=== PATIENT | male | born 1960 | race Caucasian/White ===

== ENCOUNTER 2017-08-21 02:55 | Inpatient (IN) | payer MEDICAID ==
[2017-08-21] VITALS (20 sets, daily range): BP systolic 104–140; BP diastolic 60–90; BMI 48.3
[~2017-08-21] VITALS: Ht 177.8 cm; Wt 149.7 kg
--- NOTE | ~2017-08-21 | EC ---
PATIENT:HUGO PRINCE DATE OF SERVICE: 08/21/17 SEX: M MEDICAL RECORD: [id number] DATE OF : 64 LOCATION:[facility] D230 AGE OF PATIENT: 56 ADMISSION DATE: 08/21/17 REFERRING PHYSICIAN: INTERPRETING PHYSICIAN: HERBER ROGEL MD ECHOCARDIOGRAM REPORT ECHO CHARGES 4 ECHO COMPLETE Date: 08/21 CLINICAL DIAGNOSIS: CHF ECHOCARDIOGRAPHIC MEASUREMENTS (adult normal given) AC root (d.<3.7cm) 3.3 cm LV Septum d (<1.2 cm> 1.1 cm Valve Excursion 1.9 cm LV Septum (systole) 2.1 cm Left Atria (s.<4.0cm> 3.3 cm LVPW d(<1.2cm) 1.1 cm RV (d.<2.3cm) 3.8 cm LVPW (sytole) 2.0 cm LV diastole(<5.6CM) 8.0 cm MV E-F(>70mm/sec) cm LV systole 5.4 cm LVOT Diameter 1.9 cm MV exc.(>10mm) cm Est.ejection fraction (50-75%) % DOPPLER: LVIT cm/sec A cm/sec E 135 cm/sec LA cm/sec RVSP 43.2 mmHg LVOT 103 cm/sec AOP1/2T m/s Asc. Ao 200 cm/sec RVOT 90.0 cm/sec RA cm/sec PA 134 cm/sec AV Gradient Peak 16.0 mmHg AV Mean 8.5 mmHg AV Area 1.3 cm MV Gradient Peak 11.1 mmHg MV Mean 3.6 mmHg MV Area cm COMMENTS: Cartridge Assembling Machine Adjuster: 1 MARYANNE MONTOYAOE Office Technologist: 1 Dr. Rogel TAPE# PACS Pericardial Effusion N DATE OF SERVICE: PROCEDURE: Echocardiogram. FINDINGS: 1. Left ventricular chamber size is dilated. Left ventricular systolic function is moderately reduced, overall ejection fraction 30% to 35%. 2. Left atrium is within normal limits at 3.3 cm. Right atrium and right ventricular chamber sizes are moderately dilated. 3. Valvular structures have normal structure and motion. ECHOCARDIOGRAM REPORT [id number] HUGO PRINCE 4. Doppler interrogation reveals mild mitral regurgitation, moderate tricuspid regurgitation, no other valvular insufficiency or stenosis. Pulmonary systolic pressure is estimated 43 mmHg. 5. No evidence of pericardial effusion or left ventricular thrombus. TRANSINT:[id number] Voice Confirmation ID: [id number] DOCUMENT ID: [id number] HERBER ROGEL MD at 1057 CC: [id number] DICTATION DATE: 08/22/17 1252 CAMP ASSISTANT: 08/22/17 1306 ADM IN [facility] [address] [place] [address]
[~2017-08-21 02:55] MED LIST: ASPIRIN325 MG PO; ASPIRIN81 MG PO; COREG12.5 MG PO; ELIQUIS5 MG PO; GLUCOPHAGE500 MG PO; K-DUR20 MEQ PO; LASIX20 MG PO; LIORESAL 10 MG10 MG PO; LISINOPRIL5 MG PO; NICODERM C1 PATCH .2 TRANSDERM; NITROSTAT0.4 MG SL; PLAVIX75 MG PO; PREDNISONE20 MG PO; TOPROL XL50 MG PO; VENTOLIN HFA18 GM INH; WELLBUTRIN SR150 MG PO
[2017-08-21 03:46] LABS: BASOPHILS 0.4 % (0-2); EOSINOPHILS 0.3 % (0-7); IMMATURE GRANULOCYTES 0.4 % (0-5); LYMPHOCYTES 19.6 % (15-50); MCH 20.4 pg (26.0-34.0); MCHC 26.7 g/dL (31.0-37.0); MCV 76.6 fL (80.0-100.0); MEAN PLATELET VOLUME 10.1 fL (7.4-10.4); NEUTROPHILS 72.3 % (40-80); RBC 2.35 10x6/uL (4.20-6.10); RDW 19.3 % (11.5-14.5); WBC 7.5 10x3/uL (4.8-10.8)
[2017-08-21 03:50] LABS: HEMOGLOBIN 4.8 g/dL (13.5-17.5); PLATELET COUNT 125 10x3/uL (130-400)
[2017-08-21 04:05] LABS: ALBUMIN 2.4 g/dL (3.4-5.0); ALKALINE PHOSPHATASE 82 U/L (46-116); ALT (SGPT) 10 U/L (10-68); BILIRUBIN - TOTAL 1.56 mg/dL (0.2-1.3); CALC OSMOLALITY 273 mosm/kg (275-300); CALCIUM 7.6 mg/dL (8.5-10.1); CARBON DIOXIDE 20.9 mmol/L (21.0-32.0); CHLORIDE - SERUM 103 mmol/L (98-107); CREATININE - SERUM 1.8 mg/dL (0.6-1.3); POTASSIUM - SERUM 3.9 mmol/L (3.5-5.1); PROTEIN - SERUM 8.3 g/dL (6.4-8.2); SODIUM 135 mmol/L (136-145); UREA NITROGEN 16 mg/dL (7-18); eGFR NON AFRICAN AMERICAN 42 mL/min (90-120)
[2017-08-21 04:06] LABS: GLUCOSE 158 mg/dL (74-106)
[2017-08-21 04:29] LABS: CKMB 0.7 U/L (0.0-3.6); CREATINE KINASE 63 UL (21-232); PRO BNP 4683 pg/mL (0-125); TROPONIN-I 0.031 ng/mL (0.000-0.060)
[2017-08-21 07:10] LABS: CKMB 1.1 U/L (0.0-3.6); CREATINE KINASE 79 UL (21-232); TROPONIN-I 0.027 ng/mL (0.000-0.060)
[2017-08-21 12:03] LABS: HEMOGLOBIN 5.8 g/dL (13.5-17.5)
[2017-08-21 12:12] LABS: INR 1.64 (0.85-1.17); PROTIME 18.9 SECONDS (11.6-15.0)
[2017-08-21 12:13] LABS: APTT 28.8 SECONDS (22.8-39.4)
[2017-08-21 12:24] LABS: CKMB 0.8 U/L (0.0-3.6); CREATINE KINASE 68 UL (21-232); TROPONIN-I 0.029 ng/mL (0.000-0.060)
[2017-08-21 17:56] LABS: HEMOGLOBIN 6.6 g/dL (13.5-17.5)
[2017-08-21 18:52] LABS: CKMB 0.7 U/L (0.0-3.6); CREATINE KINASE 83 UL (21-232); TROPONIN-I 0.025 ng/mL (0.000-0.060)
[2017-08-21 22:09] LABS: HEMATOCRIT 23.5 % (42.0-54.0)
[2017-08-22] VITALS (19 sets, daily range): BP systolic 95–157; BP diastolic 55–91; BMI 49.3
[2017-08-22 04:32] LABS: BASOPHILS 0.3 % (0-2); EOSINOPHILS 0.3 % (0-7); HEMATOCRIT 25.6 % (42.0-54.0); HEMOGLOBIN 7.6 g/dL (13.5-17.5); IMMATURE GRANULOCYTES 0.4 % (0-5); LYMPHOCYTES 21.4 % (15-50); MCHC 29.7 g/dL (31.0-37.0); MEAN PLATELET VOLUME 10.4 fL (7.4-10.4); MONOCYTES 6.8 % (2-11); NEUTROPHILS 70.8 % (40-80); PLATELET COUNT 119 10x3/uL (130-400); RDW 18.9 % (11.5-14.5)
[2017-08-22 04:40] LABS: MCV 80.8 fL (80.0-100.0); RBC 3.17 10x6/uL (4.20-6.10)
[2017-08-22 04:44] LABS: ANION GAP 14.1 mmol/L (8-16); CALCIUM 7.6 mg/dL (8.5-10.1); CARBON DIOXIDE 22.5 mmol/L (21.0-32.0); CREATININE - SERUM 1.7 mg/dL (0.6-1.3); POTASSIUM - SERUM 3.6 mmol/L (3.5-5.1)
[2017-08-22 04:49] LABS: INR 1.35 (0.85-1.17); PROTIME 16.2 SECONDS (11.6-15.0)
[2017-08-22 10:09] LABS: APPEARANCE CLEAR (CLEAR); BILIRUBIN NEGATIVE (NEGATIVE); COLOR YELLOW (YELLOW); CREATININE - URINE 17.6 mg/dL (30-125); GLUCOSE NEGATIVE (NEGATIVE); KETONE NEGATIVE (NEGATIVE); NITRITE NEGATIVE (NEGATIVE); PROTEIN NEGATIVE (NEGATIVE); PROTEIN - URINE 12.9 mg/dL (0.0-11.9); UROBILINOGEN NORMAL (NORMAL)
[2017-08-22 12:58] LABS: HEMATOCRIT 26.6 % (42.0-54.0); HEMOGLOBIN 8.1 g/dL (13.5-17.5)
[2017-08-23 03:00] VITALS: BP 125/56
[2017-08-23 03:44] LABS: BASOPHILS 0.3 % (0-2); EOSINOPHILS 0.8 % (0-7); HEMATOCRIT 27.7 % (42.0-54.0); HEMOGLOBIN 8.3 g/dL (13.5-17.5); IMMATURE GRANULOCYTES 0.7 % (0-5); LYMPHOCYTES 22.4 % (15-50); MCH 24.3 pg (26.0-34.0); MCV 81.2 fL (80.0-100.0); MEAN PLATELET VOLUME 10.2 fL (7.4-10.4); MONOCYTES 7.7 % (2-11); NEUTROPHILS 68.1 % (40-80); PLATELET COUNT 111 10x3/uL (130-400); RBC 3.41 10x6/uL (4.20-6.10); RDW 19.4 % (11.5-14.5); WBC 7.2 10x3/uL (4.8-10.8)
[2017-08-23 04:15] LABS: CALCIUM 7.8 mg/dL (8.5-10.1); CARBON DIOXIDE 24.2 mmol/L (21.0-32.0); CREATININE - SERUM 1.8 mg/dL (0.6-1.3); POTASSIUM - SERUM 3.2 mmol/L (3.5-5.1)
[2017-08-23 07:00] VITALS: BP 125/71
[2017-08-23 11:00] VITALS: BP 107/77
[2017-08-23 15:00] VITALS: BP 105/63
[2017-08-23 22:20] VITALS: BP 101/61
[2017-08-24 01:36] VITALS: BP 122/73
[2017-08-24 05:54] VITALS: BP 117/65
[2017-08-24 06:39] LABS: BASOPHILS 0.3 % (0-2); EOSINOPHILS 0.8 % (0-7); HEMATOCRIT 27.3 % (42.0-54.0); HEMOGLOBIN 8.1 g/dL (13.5-17.5); IMMATURE GRANULOCYTES 0.6 % (0-5); LYMPHOCYTES 23.8 % (15-50); MCH 24.5 pg (26.0-34.0); MCHC 29.7 g/dL (31.0-37.0); MCV 82.7 fL (80.0-100.0); MEAN PLATELET VOLUME 10.7 fL (7.4-10.4); MONOCYTES 8.9 % (2-11); NEUTROPHILS 65.6 % (40-80); PLATELET COUNT 111 10x3/uL (130-400); RDW 20.8 % (11.5-14.5); WBC 6.3 10x3/uL (4.8-10.8)
[2017-08-24 07:17] LABS: ANION GAP 12.8 mmol/L (8-16); CALCIUM 7.6 mg/dL (8.5-10.1); CARBON DIOXIDE 24.7 mmol/L (21.0-32.0); CREATININE - SERUM 1.7 mg/dL (0.6-1.3); POTASSIUM - SERUM 3.5 mmol/L (3.5-5.1)
[2017-08-24 08:41] VITALS: BP 125/68
[2017-08-24 12:41] VITALS: BP 110/66
[2017-08-24 16:47] VITALS: BP 108/67
[2017-08-24 21:53] VITALS: BP 106/69
[2017-08-25 02:51] VITALS: BP 105/63
[2017-08-25 04:58] LABS: BASOPHILS 0.4 % (0-2); EOSINOPHILS 0.9 % (0-7); HEMATOCRIT 25.8 % (42.0-54.0); HEMOGLOBIN 7.6 g/dL (13.5-17.5); IMMATURE GRANULOCYTES 0.4 % (0-5); MCH 24.6 pg (26.0-34.0); MCHC 29.5 g/dL (31.0-37.0); MCV 83.5 fL (80.0-100.0); MEAN PLATELET VOLUME 10.1 fL (7.4-10.4); MONOCYTES 7.8 % (2-11); NEUTROPHILS 64.5 % (40-80); PLATELET COUNT 94 10x3/uL (130-400); RBC 3.09 10x6/uL (4.20-6.10); RDW 21.7 % (11.5-14.5); WBC 5.5 10x3/uL (4.8-10.8)
[2017-08-25 05:17] LABS: ANION GAP 10.9 mmol/L (8-16); CALCIUM 7.3 mg/dL (8.5-10.1); CARBON DIOXIDE 28.2 mmol/L (21.0-32.0); CREATININE - SERUM 1.6 mg/dL (0.6-1.3); POTASSIUM - SERUM 3.1 mmol/L (3.5-5.1)
[2017-08-25 08:24] VITALS: BP 115/68
[2017-08-25 12:06] VITALS: BP 97/56
[2017-08-25 16:10] VITALS: BP 95/50
[2017-08-25 22:12] VITALS: BP 114/56
[2017-08-26] VITALS (14 sets, daily range): BP systolic 92–121; BP diastolic 52–69
[2017-08-26 05:22] LABS: BASOPHILS 0.5 % (0-2); EOSINOPHILS 1.2 % (0-7); HEMATOCRIT 25.5 % (42.0-54.0); IMMATURE GRANULOCYTES 0.2 % (0-5); LYMPHOCYTES 24.2 % (15-50); MCH 24.6 pg (26.0-34.0); MCV 84.7 fL (80.0-100.0); MEAN PLATELET VOLUME 10.4 fL (7.4-10.4); MONOCYTES 7.3 % (2-11); NEUTROPHILS 66.6 % (40-80); PLATELET COUNT 89 10x3/uL (130-400); RBC 3.01 10x6/uL (4.20-6.10); RDW 22.7 % (11.5-14.5); WBC 5.8 10x3/uL (4.8-10.8)
[2017-08-26 05:33] LABS: HEMOGLOBIN 7.4 g/dL (13.5-17.5)
[2017-08-26 05:52] LABS: ANION GAP 12.1 mmol/L (8-16); CALCIUM 7.4 mg/dL (8.5-10.1); CARBON DIOXIDE 27.5 mmol/L (21.0-32.0); CREATININE - SERUM 1.5 mg/dL (0.6-1.3); POTASSIUM - SERUM 3.6 mmol/L (3.5-5.1); T4 THYROXIN - FREE 0.99 ng/dL (0.76-1.46)
[2017-08-27 00:41] VITALS: BP 108/58
[2017-08-27 04:40] LABS: BASOPHILS 0.5 % (0-2); EOSINOPHILS 1.6 % (0-7); HEMATOCRIT 27.5 % (42.0-54.0); HEMOGLOBIN 8.2 g/dL (13.5-17.5); IMMATURE GRANULOCYTES 0.4 % (0-5); MCH 25.2 pg (26.0-34.0); MCHC 29.8 g/dL (31.0-37.0); MCV 84.4 fL (80.0-100.0); MEAN PLATELET VOLUME 10.8 fL (7.4-10.4); MONOCYTES 7.4 % (2-11); NEUTROPHILS 67.1 % (40-80); PLATELET COUNT 89 10x3/uL (130-400); RBC 3.26 10x6/uL (4.20-6.10); RDW 22.5 % (11.5-14.5); WBC 5.6 10x3/uL (4.8-10.8)
[2017-08-27 04:46] LABS: INR 1.27 (0.85-1.17); PROTIME 15.5 SECONDS (11.6-15.0)
[2017-08-27 04:47] LABS: APTT 30.2 SECONDS (22.8-39.4)
[2017-08-27 05:22] LABS: ALBUMIN 2.4 g/dL (3.4-5.0); ANION GAP 10.1 mmol/L (8-16); BILIRUBIN - TOTAL 1.19 mg/dL (0.2-1.3); CALCIUM 7.3 mg/dL (8.5-10.1); CARBON DIOXIDE 30.1 mmol/L (21.0-32.0); CREATININE - SERUM 1.6 mg/dL (0.6-1.3); POTASSIUM - SERUM 3.2 mmol/L (3.5-5.1); PROTEIN - SERUM 8.3 g/dL (6.4-8.2)
[2017-08-27 10:27] VITALS: BP 94/57
[2017-08-27 18:18] VITALS: BP 94/54
[2017-08-27 20:44] VITALS: BP 101/73
[2017-08-28 01:24] VITALS: BP 112/74
[2017-08-28 06:52] LABS: BASOPHILS 0.5 % (0-2); EOSINOPHILS 2.2 % (0-7); HEMATOCRIT 30.7 % (42.0-54.0); IMMATURE GRANULOCYTES 0.3 % (0-5); LYMPHOCYTES 19.4 % (15-50); MCH 25.1 pg (26.0-34.0); MCHC 29.3 g/dL (31.0-37.0); MCV 85.5 fL (80.0-100.0); MEAN PLATELET VOLUME 10.9 fL (7.4-10.4); NEUTROPHILS 69.6 % (40-80); PLATELET COUNT 97 10x3/uL (130-400); RBC 3.59 10x6/uL (4.20-6.10); RDW 22.3 % (11.5-14.5)
[2017-08-28 07:25] LABS: PLATELET ESTIMATE DECREASED
[2017-08-28 07:34] LABS: ALBUMIN 2.5 g/dL (3.4-5.0); BILIRUBIN - TOTAL 1.1 mg/dL (0.2-1.3); CALCIUM 7.9 mg/dL (8.5-10.1); CARBON DIOXIDE 31.3 mmol/L (21.0-32.0); CREATININE - SERUM 1.6 mg/dL (0.6-1.3); PROTEIN - SERUM 8.4 g/dL (6.4-8.2)
[2017-08-28 07:35] LABS: ANION GAP 8.8 mmol/L (8-16); POTASSIUM - SERUM 3.1 mmol/L (3.5-5.1)
[2017-08-28 08:12] VITALS: BP 98/64
[2017-08-28 11:34] LABS: INR 1.28 (0.85-1.17); PROTIME 15.6 SECONDS (11.6-15.0)
[2017-08-28 16:08] VITALS: BP 108/62
[2017-08-28 20:21] VITALS: BP 104/60
[2017-08-29] VITALS (15 sets, daily range): BP systolic 94–137; BP diastolic 51–75
[2017-08-29 05:15] LABS: BASOPHILS 0.5 % (0-2); EOSINOPHILS 1.4 % (0-7); HEMATOCRIT 29.2 % (42.0-54.0); HEMOGLOBIN 8.6 g/dL (13.5-17.5); IMMATURE GRANULOCYTES 0.2 % (0-5); LYMPHOCYTES 21.6 % (15-50); MCH 25.2 pg (26.0-34.0); MCHC 29.5 g/dL (31.0-37.0); MCV 85.6 fL (80.0-100.0); MEAN PLATELET VOLUME 10.8 fL (7.4-10.4); MONOCYTES 6.2 % (2-11); NEUTROPHILS 70.1 % (40-80); PLATELET COUNT 100 10x3/uL (130-400); RBC 3.41 10x6/uL (4.20-6.10); RDW 22.4 % (11.5-14.5); WBC 6.3 10x3/uL (4.8-10.8)
[2017-08-29 05:40] LABS: ALBUMIN 2.4 g/dL (3.4-5.0); BILIRUBIN - TOTAL 1.03 mg/dL (0.2-1.3); CALCIUM 7.8 mg/dL (8.5-10.1); CARBON DIOXIDE 29.6 mmol/L (21.0-32.0); CREATININE - SERUM 1.6 mg/dL (0.6-1.3); PROTEIN - SERUM 8.1 g/dL (6.4-8.2)
[2017-08-29 05:41] LABS: POTASSIUM - SERUM 3.6 mmol/L (3.5-5.1)
[2017-08-30 00:56] VITALS: BP 112/68
[2017-08-30 04:44] VITALS: BP 103/63
[2017-08-30 05:32] LABS: BASOPHILS 0.3 % (0-2); EOSINOPHILS 1.4 % (0-7); HEMATOCRIT 30.6 % (42.0-54.0); HEMOGLOBIN 9.1 g/dL (13.5-17.5); IMMATURE GRANULOCYTES 0.3 % (0-5); LYMPHOCYTES 21.2 % (15-50); MCH 25.7 pg (26.0-34.0); MCHC 29.7 g/dL (31.0-37.0); MCV 86.4 fL (80.0-100.0); MEAN PLATELET VOLUME 11.3 fL (7.4-10.4); MONOCYTES 5.7 % (2-11); NEUTROPHILS 71.1 % (40-80); PLATELET COUNT 103 10x3/uL (130-400); RBC 3.54 10x6/uL (4.20-6.10); RDW 21.8 % (11.5-14.5); WBC 6.3 10x3/uL (4.8-10.8)
[2017-08-30 05:57] LABS: ALBUMIN 2.4 g/dL (3.4-5.0); ANION GAP 8.8 mmol/L (8-16); BILIRUBIN - DIRECT 0.33 mg/dL (0.00-0.30); BILIRUBIN - INDIRECT 0.67 mg/dL (0.00-1.00); CALCIUM 7.9 mg/dL (8.5-10.1); CARBON DIOXIDE 30.3 mmol/L (21.0-32.0); CREATININE - SERUM 1.7 mg/dL (0.6-1.3); POTASSIUM - SERUM 4.1 mmol/L (3.5-5.1); PROTEIN - SERUM 8.4 g/dL (6.4-8.2)
[2017-08-30 13:09] VITALS: BP 106/61
[2017-08-30 16:19] VITALS: BP 105/67
[2017-08-30 20:43] VITALS: BP 114/71
[2017-08-30 20:55] VITALS: Ht 177.8 cm; Wt 149.7 kg
[2017-08-31 01:20] VITALS: BP 95/66
[2017-08-31 05:52] VITALS: BP 100/69
[2017-08-31 07:14] LABS: BASOPHILS 0.6 % (0-2); EOSINOPHILS 1.3 % (0-7); HEMATOCRIT 31.6 % (42.0-54.0); HEMOGLOBIN 9.4 g/dL (13.5-17.5); IMMATURE GRANULOCYTES 0.2 % (0-5); LYMPHOCYTES 19.7 % (15-50); MCH 25.9 pg (26.0-34.0); MCHC 29.7 g/dL (31.0-37.0); MCV 87.1 fL (80.0-100.0); MONOCYTES 6.4 % (2-11); NEUTROPHILS 71.8 % (40-80); PLATELET COUNT 108 10x3/uL (130-400); RBC 3.63 10x6/uL (4.20-6.10); RDW 22.4 % (11.5-14.5); WBC 6.3 10x3/uL (4.8-10.8)
[2017-08-31 07:57] LABS: ALBUMIN 2.5 g/dL (3.4-5.0); BILIRUBIN - TOTAL 1.01 mg/dL (0.2-1.3); CALCIUM 7.9 mg/dL (8.5-10.1); CARBON DIOXIDE 28.5 mmol/L (21.0-32.0); CREATININE - SERUM 1.7 mg/dL (0.6-1.3); POTASSIUM - SERUM 4.5 mmol/L (3.5-5.1); PROTEIN - SERUM 8.7 g/dL (6.4-8.2)
[2017-08-31 09:09] VITALS: BP 107/67
[2017-08-31 12:30] VITALS: BP 108/68
[2017-08-31 15:58] VITALS: BP 105/66
[2017-08-31] MEDS ORDERED: MOTRIN600 MG PO (20:23)
[2017-09-01] VITALS: BP 113/65
[2017-09-01 04:05] VITALS: BP 104/67
[2017-09-01 06:11] LABS: BASOPHILS 0.4 % (0-2); EOSINOPHILS 1.4 % (0-7); HEMATOCRIT 29.8 % (42.0-54.0); HEMOGLOBIN 8.9 g/dL (13.5-17.5); IMMATURE GRANULOCYTES 0.2 % (0-5); LYMPHOCYTES 22.6 % (15-50); MCH 25.9 pg (26.0-34.0); MCHC 29.9 g/dL (31.0-37.0); MCV 86.6 fL (80.0-100.0); MEAN PLATELET VOLUME 11.1 fL (7.4-10.4); NEUTROPHILS 69.4 % (40-80); PLATELET COUNT 104 10x3/uL (130-400); RBC 3.44 10x6/uL (4.20-6.10); RDW 22.7 % (11.5-14.5); WBC 5.6 10x3/uL (4.8-10.8)
[2017-09-01 06:42] LABS: ALBUMIN 2.4 g/dL (3.4-5.0); BILIRUBIN - TOTAL 0.89 mg/dL (0.2-1.3); CALCIUM 7.9 mg/dL (8.5-10.1); CARBON DIOXIDE 27.9 mmol/L (21.0-32.0); POTASSIUM - SERUM 4.9 mmol/L (3.5-5.1); PROTEIN - SERUM 8.4 g/dL (6.4-8.2)
[2017-09-01 09:18] VITALS: BP 128/60
[2017-09-01 12:09] VITALS: BP 105/66
[2017-09-01 15:42] LABS: APPEARANCE CLOUDY (CLEAR); BILIRUBIN NEGATIVE (NEGATIVE); COLOR DK YELLOW (YELLOW); GLUCOSE NEGATIVE (NEGATIVE); KETONE NEGATIVE (NEGATIVE); NITRITE NEGATIVE (NEGATIVE); PH 5.5 (5.0-6.0); PROTEIN 2+ mg/dL (NEGATIVE); SPECIFIC GRAVITY 1.015 (1.005-1.020); UROBILINOGEN NORMAL (NORMAL)
[2017-09-01 15:49] LABS: BACTERIA MANY /hpf (NONE SEEN); EPITHELIAL CELLS 0-5 /hpf (0-5); RED CELLS - URINE >50 /hpf (0-5)
[2017-09-01 16:09] VITALS: BP 119/74
[2017-09-01 20:54] VITALS: BP 99/87
[2017-09-02] VITALS (18 sets, daily range): BP systolic 93–130; BP diastolic 60–84
[2017-09-02 06:12] LABS: BASOPHILS 0.3 % (0-2); EOSINOPHILS 1.3 % (0-7); HEMATOCRIT 29.5 % (42.0-54.0); HEMOGLOBIN 8.8 g/dL (13.5-17.5); IMMATURE GRANULOCYTES 0.3 % (0-5); LYMPHOCYTES 20.6 % (15-50); MCH 26.1 pg (26.0-34.0); MCHC 29.8 g/dL (31.0-37.0); MCV 87.5 fL (80.0-100.0); MEAN PLATELET VOLUME 11.6 fL (7.4-10.4); MONOCYTES 5.6 % (2-11); NEUTROPHILS 71.9 % (40-80); PLATELET COUNT 112 10x3/uL (130-400); RBC 3.37 10x6/uL (4.20-6.10); RDW 22.9 % (11.5-14.5); WBC 6.1 10x3/uL (4.8-10.8)
[2017-09-02 07:07] LABS: INR 1.24 (0.85-1.17); PROTIME 15.2 SECONDS (11.6-15.0)
[2017-09-02 07:08] LABS: APTT 31.6 SECONDS (22.8-39.4)
[2017-09-02 07:17] LABS: ALBUMIN 2.5 g/dL (3.4-5.0); ANION GAP 12.3 mmol/L (8-16); BILIRUBIN - TOTAL 0.98 mg/dL (0.2-1.3); POTASSIUM - SERUM 5.3 mmol/L (3.5-5.1); PROTEIN - SERUM 8.6 g/dL (6.4-8.2)
[2017-09-02 13:15] LABS: HAPTOGLOBIN 165 mg/dL (34-200)
[2017-09-03 00:01] VITALS: BP 115/72
[2017-09-03 04:14] LABS: HEPATITIS C ANTIBODY 0.4 (0.0-0.9)
[2017-09-03 04:17] VITALS: BP 115/80
[2017-09-03 07:11] LABS: BASOPHILS 0.6 % (0-2); EOSINOPHILS 1.7 % (0-7); HEMATOCRIT 32.7 % (42.0-54.0); HEMOGLOBIN 9.8 g/dL (13.5-17.5); IMMATURE GRANULOCYTES 0.4 % (0-5); LYMPHOCYTES 18.9 % (15-50); MCH 26.3 pg (26.0-34.0); MCV 87.9 fL (80.0-100.0); MEAN PLATELET VOLUME 10.7 fL (7.4-10.4); MONOCYTES 6.5 % (2-11); NEUTROPHILS 71.9 % (40-80); PLATELET COUNT 111 10x3/uL (130-400); RBC 3.72 10x6/uL (4.20-6.10); RDW 22.2 % (11.5-14.5); WBC 5.4 10x3/uL (4.8-10.8)
[2017-09-03 07:39] LABS: ALBUMIN 2.5 g/dL (3.4-5.0); ANION GAP 12.7 mmol/L (8-16); BILIRUBIN - TOTAL 0.96 mg/dL (0.2-1.3); CALCIUM 8.3 mg/dL (8.5-10.1); CARBON DIOXIDE 25.5 mmol/L (21.0-32.0); CREATININE - SERUM 2.2 mg/dL (0.6-1.3); POTASSIUM - SERUM 5.2 mmol/L (3.5-5.1); PROTEIN - SERUM 8.6 g/dL (6.4-8.2)
[2017-09-03 09:15] VITALS: BP 112/75
[2017-09-03 14:25] VITALS: BP 114/77
== END 2017-09-03 18:40 | disposition home or self-care (01) | DRG 377 ==
LOC: D.ER 02:55 → D.M2 05:20 → D.MS 05:20 → D.EDHOLD 05:20 → D.ICU 05:20 → D.M2 07:28 → D.EDHOLD 08:26 → D.ICU 08:38 → D.MS 08-23 16:05
PROVIDERS: Family Medicine; Internal Medicine Gastroenterology; Internal Medicine Hematology & Oncology; Internal Medicine Nephrology; Specialist
PROC: 0DB68ZX Excision of Stomach, Via Natural or Artificial Opening Endoscopic, Diagnostic (ICD-10-PCS; 2017-08-21)
PROC: 0W3P8ZZ Control Bleeding in Gastrointestinal Tract, Via Natural or Artificial Opening Endoscopic (ICD-10-PCS; 2017-08-21)
PROC: 0DB98ZX Excision of Duodenum, Via Natural or Artificial Opening Endoscopic, Diagnostic (ICD-10-PCS; principal; 2017-08-21 16:30)
DX: K25.4 Chronic or unspecified gastric ulcer with hemorrhage (principal); I50.23 Acute on chronic systolic (congestive) heart failure; I13.0 Hypertensive heart and chronic kidney disease with heart failure and stage 1 through stage 4 chronic kidney disease, or unspecified chronic kidney disease; K22.10 Ulcer of esophagus without bleeding; N17.9 Acute kidney failure, unspecified; F17.203 Nicotine dependence unspecified, with withdrawal; Z68.42 Body mass index [BMI] 45.0-49.9, adult; N39.0 Urinary tract infection, site not specified; D62 Acute posthemorrhagic anemia; N18.9 Chronic kidney disease, unspecified; E11.22 Type 2 diabetes mellitus with diabetic chronic kidney disease; E66.01 Morbid (severe) obesity due to excess calories; K44.9 Diaphragmatic hernia without obstruction or gangrene; K29.80 Duodenitis without bleeding; K31.7 Polyp of stomach and duodenum; G47.33 Obstructive sleep apnea (adult) (pediatric); Z95.1 Presence of aortocoronary bypass graft; J44.9 Chronic obstructive pulmonary disease, unspecified; I25.10 Atherosclerotic heart disease of native coronary artery without angina pectoris

== ENCOUNTER 2017-09-24 09:49 | Inpatient (IN) | payer MEDICAID ==
[2017-09-24] VITALS (14 sets, daily range): BP systolic 101–130; BP diastolic 21–98; BMI 51.6
[~2017-09-24] VITALS: Ht 177.8 cm; Wt 185.0 kg
--- NOTE | ~2017-09-24 | OP ---
PATIENT NAME: HUGO PRINCE MEDICAL RECORD: [id number] :64 LOCATION:D.ICU D.2308 ADMISSION DATE:09/24/17 SURGEON: KATARZYNA PAZ MD DATE OF OPERATION: 10/03/2017 PREOPERATIVE DIAGNOSES: 1. Acute renal failure. 2. Respiratory failure, on the ventilator. 3. Morbid obesity. 4. Systolic congestive heart failure. 5. Pulmonary hypertension. 6. Chronic obstructive pulmonary disease. 7. Diabetes mellitus. POSTOPERATIVE DIAGNOSES: 1. Acute renal failure. 2. Respiratory failure, on the ventilator. 3. Morbid obesity. 4. Systolic congestive heart failure. 5. Pulmonary hypertension. 6. Chronic obstructive pulmonary disease. 7. Diabetes mellitus. PROCEDURE: Right IJ 12.5 cm Trialysis catheter placement. SURGEON: Katarzyna Paz MD REPORT OF PROCEDURE: The patient's right neck was prepped and draped in sterile fashion. Using ultrasound guidance, a needle was used to cannulate the right internal jugular vein. A guidewire was advanced. Over this wire, a dilator was placed followed by the Trialysis catheter. The catheter aspirated nonpulsatile dark blood and flushed easily in all 3 ports. This was sutured into place with 4-0 nylons and dressed appropriately. COMPLICATIONS: None. CONDITION: Critical. ANESTHESIA: General endotracheal. BLOOD LOSS: Minimal. Procedure done in the ICU at the bedside. TRANSINT:[id number] Voice Confirmation ID: [id number] DOCUMENT ID: [id number] KATARZYNA PAZ MD at 1031 CC: [id number] DICTATION DATE: 10/03/17 1524 MEDICAL DOCTOR NUCLEAR MEDICINE: 10/03/17 1540 DIS IN 10/06/17 [facility] [address] [place] [address]
--- NOTE | ~2017-09-24 | EC ---
PATIENT:HUGO PRINCE DATE OF SERVICE: 09/24/17 SEX: M MEDICAL RECORD: [id number] DATE OF : 64 LOCATION:[place] [address] AGE OF PATIENT: 56 ADMISSION DATE: 09/24/17 REFERRING PHYSICIAN: INTERPRETING PHYSICIAN: HERBER ROGEL MD ECHOCARDIOGRAM REPORT ECHO CHARGES 4 ECHO COMPLETE Date: 09/25 CLINICAL DIAGNOSIS: CHF ECHOCARDIOGRAPHIC MEASUREMENTS (adult normal given) AC root (d.<3.7cm) 0 cm LV Septum d (<1.2 cm> 0 cm Valve Excursion 0 cm LV Septum (systole) 0 cm Left Atria (s.<4.0cm> 0 cm LVPW d(<1.2cm) 0 cm RV (d.<2.3cm) 0 cm LVPW (sytole) 0 cm LV diastole(<5.6CM) 0 cm MV E-F(>70mm/sec) 0 cm LV systole 0 cm LVOT Diameter 0 cm MV exc.(>10mm) 0 cm Est.ejection fraction (50-75%) % DOPPLER: LVIT cm/sec A 0 cm/sec E 0 cm/sec LA 0 cm/sec RVSP 34.0 mmHg LVOT 0 cm/sec AOP1/2T 0 m/s Asc. Ao 0 cm/sec RVOT 0 cm/sec RA 0 cm/sec PA 0 cm/sec AV Gradient Peak 0 mmHg AV Mean 0 mmHg AV Area 0 cm MV Gradient Peak 0 mmHg MV Mean 0 mmHg MV Area 0 cm COMMENTS: LIMITED STUDY (2-D,COLOR,DOPPLER) COMPLETE ECHO DONE ON 08/21/17 Tester Rocket Engine: Kym MARTINI Record Tester: 1 Dr. Rogel TAPE# PACS Pericardial Effusion N DATE OF SERVICE: 09/25/2017 PROCEDURE: Limited echocardiogram. FINDINGS: 1. Left ventricular chamber size is mildly dilated. Left ventricular systolic function is moderately reduced, overall ejection fraction of 30%. 2. Left atrium, right atrium, and right ventricle chamber sizes are mildly dilated. 3. Valvular structures have normal structure and motion. ECHOCARDIOGRAM REPORT [id number] HUGO PRINCE 4. Doppler interrogation reveals moderate mitral regurgitation, moderate tricuspid regurgitation, no other valvular insufficiency or stenosis. Pulmonary systolic pressure is estimated 34 mmHg. 5. No evidence of pericardial effusion or left ventricular thrombus. TRANSINT:[id number] Voice Confirmation ID: [id number] DOCUMENT ID: [id number] HERBER ROGEL MD at 1444 CC: [id number] DICTATION DATE: 09/25/17 1547 INDUSTRIAL TECH INSTRUCTOR: 09/25/17 [address] [facility] [address] [place] [id number]
--- NOTE | ~2017-09-24 | CN ---
PATIENT NAME:HUGO PRINCE MEDICAL RECORD: [id number] : 64 LOCATION:[id number] ADMIT DATE: 09/24/17 ACCOUNT: [id number] CONSULTING PHYSICIAN: JENNY SEGURA MD REFERRING PHYSICIAN: BRYAN VERA MD DATE OF CONSULTATION: 09/24/2017 CONSULT REQUESTING PHYSICIAN: Bryan Vera MD REASON FOR CONSULTATION: Acute hypoxic hypercapnic respiratory failure. HISTORY OF PRESENT ILLNESS: Mr. Prince is a 56-year-old gentleman who has a history of congestive heart failure. He was hospitalized in the second week of August for congestive heart failure. The patient was brought into the ER with worsening shortness of breath. The workup showed the patient is in respiratory acidosis. He is in [id number]-yncfmfg hypercapnic respiratory failure with pulmonary edema. The patient is now in the ICU. He is sleepy but he is awake and follows commands. REVIEW OF SYSTEMS: The detail is not obtainable. PAST MEDICAL HISTORY: 1. Congestive heart failure with EF of 30%. 2. Hypertension. 3. Type 2 diabetes mellitus. 4. Coronary artery disease, status post stent placement. 5. Peripheral vascular disease. 6. History of left lower extremity DVT. 7. COPD. 8. Obstructive sleep apnea. 9. Depression. PAST SURGICAL HISTORY: 1. He had CABG. 2. He had left foot surgery. 3. Cardiac catheterization and stent placement. ALLERGIES: HE IS ALLERGIC TO CEPHALEXIN AND TRAMADOL. PRESENT MEDICATIONS: [employer] was reviewed. PERSONAL AND SOCIAL HISTORY: The patient is a current everyday smoker. He was also a drinker, probably he quit 7-8 years ago. FAMILY HISTORY: Not known. PHYSICAL EXAMINATION: GENERAL: Now, the patient is on the BiPAP. He is sleepy but he is arousable. VITAL SIGNS: The blood pressure is 114/86, pulse is 92, respiration is 21, temperature is 96.1, SpO2 is 85% to 98% on BiPAP with 45% oxygen. HEENT: Conjunctivae are pink. Sclerae not icteric. NECK: Neck is supple. No JVD. CHEST: There are bilateral crackles and wheeze on forceful expiration. HEART: Rate and rhythm regular. The heart sounds are distant. ABDOMEN: Abdomen is soft. Bowel sounds present. No hepatosplenomegaly. CONSULT REPORT [id number] HILARIO RECTAL: Deferred. EXTREMITIES: No cyanosis. No clubbing. There is 2+ pedal edema. LAB DATA: CBC; WBC 10.6, hemoglobin 8.3, hematocrit 28.2, and platelet count 163. Chemistry; sodium 138, potassium 4.2, BUN is 46, creatinine is 3. ABG; the pH is 7.14, pCO2 66.1, pO2 is 42, bicarb is 22.7. On the BiPAP, the pH is 7.16, pCO2 is 68, pO2 is 90, and bicarb is 24.4. CHEST RADIOGRAPH: There is increased interstitial marking. There are bilateral pleural effusions. IMPRESSION: 1. Acute hypoxic hypercapnic respiratory failure. 2. Respiratory acidosis. 3. Congestive heart failure, systolic dysfunction with EF of 30%, acute on chronic. 4. Pulmonary edema. 5. Pleural effusion. 6. Pulmonary hypertension, most likely secondary to CHF and obstructive sleep apnea. The right ventricular systolic pressure in August was in 40s. 7. Morbid obesity. 8. Obesity-hypoventilation syndrome. 9. Obefu-oi-qmdpbvj renal failure. 10. Obstructive sleep apnea. 11. COPD acute exacerbation secondary to congestive heart failure. RECOMMENDATION: 1. Continue the BiPAP. ABG p.r.n. 2. Continue Lasix. 3. Albuterol/ipratropium nebulizer. 4. Brovana and budesonide nebulizer. 5. DVT prophylaxis. 6. Repeat the cardiac echo. 7. We will followup labs and chest radiograph. 8. Stress GI ulcer prevention. TRANSINT:[id number] Voice Confirmation ID: [id number] DOCUMENT ID: [id number] JENNY SEGURA MD CC: [id number] DICTATION DATE: 09/24/17 1405 DIRECTOR GLOBAL MEDICAL AFFAIRS: 09/24/17 1431 ADM IN [facility] [address] [place] [address]
--- NOTE | ~2017-09-24 | CN ---
PATIENT NAME:HUGO PRINCE MEDICAL RECORD: [id number] : 64 LOCATION:[id number] ADMIT DATE: 09/24/17 ACCOUNT: [id number] CONSULTING PHYSICIAN: HERBER OWENS MD REFERRING PHYSICIAN: DESHAWN DALEY MD DATE OF CONSULTATION: 10/02/2017 Cardiology Consult DIAGNOSES: 1. Congestive heart failure. 2. Chronic systolic dysfunction. 3. Cardiomyopathy. 4. Coronary artery disease. 5. Renal failure. 6. Respiratory failure. 7. Acidosis. 8. Anemia. 9. Gastrointestinal bleed. HISTORY OF PRESENT ILLNESS: This is a gentleman who presented with respiratory distress as well as gastrointestinal bleed, found to be with respiratory failure requiring mechanical intubation, found to be in renal failure, felt to be not a candidate for dialysis with a creatinine of 5.4, BUN of 115. He does have pulmonary edema on chest x-ray. He does have a cardiomyopathy, ejection fraction 30%. He has a history of this cardiomyopathy, this is not new. He has a history of coronary artery disease, this has been stable. PHYSICAL EXAMINATION: GENERAL APPEARANCE: Well-nourished, well-developed, appears stated age. Level of distress, comfortable. PSYCHIATRIC: Mental status, alert, normal affect. Orientation, oriented to time, place and person. EYES: Lids and conjunctiva, noninjected. No discharge, no pallor. ENT: Lips, teeth, gums, normal dentition. Oropharynx, no cyanosis, no pallor. NECK: Carotid arteries, bilateral normal upstroke, no bruits, no thrills. JUGULAR VEINS: No jugular venous pressure or distention. CERVICAL LYMPH NODES: Nontender, nonenlarged. THYROID: Not enlarged. Nontender. No nodules. LUNGS: Respiratory effort, unlabored. CHEST: Normal curvature. No thoracic deformity. No chest wall tenderness. Percussion, resonant. Auscultation, clear. No wheezes, no rales, no rhonchi. CARDIOVASCULAR: Precordial exam, nondisplaced. No heaves or pericardial thrills. Rate and rhythm, regular. Heart sounds, normal S1, normal S2. No S3, no gallop, no rub. Systolic murmur, not heard. Diastolic murmur, not heard. EXTREMITIES: No cyanosis, no edema. Peripheral pulses, full and equal in all extremities, except as noted. No bruits appreciated. ABDOMEN: Soft, nondistended. Normal aorta. No bruit. Nontender. No masses. Liver, nontender, no hepatomegaly. Spleen, nontender, no splenomegaly. MUSCULOSKELETAL: No joint tenderness. No joint swelling. No erythema. NEUROLOGICAL: Normal gait, normal strength, normal tone. SKIN: Warm and dry. OVERALL IMPRESSION: Hypotension shock, renal failure, congestive heart failure, cardiomyopathy, coronary artery disease. At this time, this is extremely poor CONSULT REPORT [id number] HUGO PRINCE prognosis. We would favor making the patient DNR and hospice as likelihood of survival with multisystem organ failure is very low. From a cardiac standpoint, the patient is already very tachycardic, which is a sinus tachycardia at 140 beats per minute. Systolic blood pressure of 90s would not suggest dobutamine secondary to this would worsen the tachycardia in chance of extending an ischemic component to this. Hence, at this point, there is no good treatment from a cardiac standpoint for the situation. TRANSINT:[id number] Voice Confirmation ID: [id number] DOCUMENT ID: [id number] HERBER OWENS MD at 1218 CC: [id number] DICTATION DATE: 10/02/17 1239 ELEMENTARY EDUCATION TUTOR: 10/02/17 1314 ADM IN [place] [id number] [place] [id number]
[~2017-09-24 09:49] MED LIST changes: +MOTRIN600 MG PO
[2017-09-24 10:40] LABS: BASOPHILS 0.2 % (0-2); EOSINOPHILS 0 % (0-7); HEMATOCRIT 28.2 % (42.0-54.0); HEMOGLOBIN 8.3 g/dL (13.5-17.5); LYMPHOCYTES 12.1 % (15-50); MCH 27.2 pg (26.0-34.0); MCHC 29.4 g/dL (31.0-37.0); MCV 92.5 fL (80.0-100.0); MEAN PLATELET VOLUME 10.1 fL (7.4-10.4); MONOCYTES 6.3 % (2-11); NEUTROPHILS 80.4 % (40-80); PLATELET COUNT 163 10x3/uL (130-400); RBC 3.05 10x6/uL (4.20-6.10); RDW 23.5 % (11.5-14.5); WBC 10.6 10x3/uL (4.8-10.8)
[2017-09-24 10:41] LABS: APPEARANCE CLEAR (CLEAR); COLOR DK YELLOW (YELLOW); SPECIFIC GRAVITY 1.025 (1.005-1.020)
[2017-09-24 10:43] LABS: BACTERIA FEW /hpf (NONE SEEN); BILIRUBIN NEGATIVE (NEGATIVE); EPITHELIAL CELL CAST 0-5 /lpf (NONE SEEN); GLUCOSE NEGATIVE (NEGATIVE); KETONE NEGATIVE (NEGATIVE); MUCUS <1+ /lpf (NONE SEEN); NITRITE NEGATIVE (NEGATIVE); PROTEIN TRACE mg/dL (NEGATIVE); RED CELLS - URINE 0-5 /hpf (0-5); UROBILINOGEN NORMAL (NORMAL); WHITE CELLS - URINE 0-5 /hpf (0-5)
[2017-09-24 10:49] LABS: APTT 25.2 SECONDS (22.8-39.4); INR 1.56 (0.85-1.17); PROTIME 18.1 SECONDS (11.6-15.0)
[2017-09-24 10:55] LABS: ALBUMIN 2.8 g/dL (3.4-5.0); ALKALINE PHOSPHATASE 117 U/L (46-116); ALT (SGPT) 22 U/L (10-68); CALC OSMOLALITY 290 mosm/kg (275-300); CALCIUM 8.3 mg/dL (8.5-10.1); CARBON DIOXIDE 22.8 mmol/L (21.0-32.0); CHLORIDE - SERUM 106 mmol/L (98-107); GLUCOSE 145 mg/dL (74-106); POTASSIUM - SERUM 4.2 mmol/L (3.5-5.1); PROTEIN - SERUM 9.3 g/dL (6.4-8.2); SODIUM 138 mmol/L (136-145); UREA NITROGEN 46 mg/dL (7-18); eGFR NON AFRICAN AMERICAN 23 mL/min (90-120)
[2017-09-24 11:08] LABS: CKMB 3.1 U/L (0.0-3.6); CREATINE KINASE 138 UL (21-232); MAGNESIUM - SERUM 2.5 mg/dL (1.8-2.4); PRO BNP 27330 pg/mL (0-125); TROPONIN-I 0.019 ng/mL (0.000-0.060)
[2017-09-25] VITALS (24 sets, daily range): BP systolic 103–130; BP diastolic 50–91; Ht 177.8 cm; Wt 185.0 kg
[2017-09-25 12:11] LABS: ANION GAP 17.7 mmol/L (8-16); CALCIUM 7.7 mg/dL (8.5-10.1); CARBON DIOXIDE 22.1 mmol/L (21.0-32.0); MAGNESIUM - SERUM 2.2 mg/dL (1.8-2.4); POTASSIUM - SERUM 4.8 mmol/L (3.5-5.1)
[2017-09-25 14:36] LABS: BASOPHILS 0.2 % (0-2); EOSINOPHILS 1.3 % (0-7); HEMATOCRIT 22.6 % (42.0-54.0); IMMATURE GRANULOCYTES 0.3 % (0-5); MCH 27.6 pg (26.0-34.0); MCHC 30.1 g/dL (31.0-37.0); MCV 91.9 fL (80.0-100.0); MEAN PLATELET VOLUME 9.7 fL (7.4-10.4); MONOCYTES 7.9 % (2-11); NEUTROPHILS 74.3 % (40-80); RBC 2.46 10x6/uL (4.20-6.10); RDW 23.7 % (11.5-14.5)
[2017-09-25 14:37] LABS: WBC 6.1 10x3/uL (4.8-10.8)
[2017-09-25 14:39] LABS: HEMOGLOBIN 6.8 g/dL (13.5-17.5); PLATELET COUNT 92 10x3/uL (130-400)
[2017-09-25 15:34] LABS: PLATELET ESTIMATE DECREASED
[2017-09-26] VITALS (24 sets, daily range): BP systolic 100–140; BP diastolic 36–88
[2017-09-26 05:25] LABS: BASOPHILS 0.4 % (0-2); EOSINOPHILS 1.1 % (0-7); HEMATOCRIT 22.4 % (42.0-54.0); IMMATURE GRANULOCYTES 0.2 % (0-5); LYMPHOCYTES 17.4 % (15-50); MCH 27.8 pg (26.0-34.0); MCHC 30.4 g/dL (31.0-37.0); MCV 91.4 fL (80.0-100.0); MEAN PLATELET VOLUME 9.1 fL (7.4-10.4); MONOCYTES 8.3 % (2-11); NEUTROPHILS 72.6 % (40-80); PLATELET COUNT 87 10x3/uL (130-400); RBC 2.45 10x6/uL (4.20-6.10); RDW 23.5 % (11.5-14.5); WBC 5.4 10x3/uL (4.8-10.8)
[2017-09-26 06:08] LABS: HEMOGLOBIN 6.8 g/dL (13.5-17.5)
[2017-09-26 06:22] LABS: ALBUMIN 3.1 g/dL (3.4-5.0); ANION GAP 16.3 mmol/L (8-16); BILIRUBIN - TOTAL 0.72 mg/dL (0.2-1.3); CALCIUM 7.7 mg/dL (8.5-10.1); CARBON DIOXIDE 23.5 mmol/L (21.0-32.0); CREATININE - SERUM 3.4 mg/dL (0.6-1.3); MAGNESIUM - SERUM 2.3 mg/dL (1.8-2.4); PROTEIN - SERUM 8.3 g/dL (6.4-8.2)
[2017-09-26 06:25] LABS: POTASSIUM - SERUM 3.8 mmol/L (3.5-5.1)
[2017-09-27] VITALS (18 sets, daily range): BP systolic 99–135; BP diastolic 50–90
[2017-09-27 05:10] LABS: ANION GAP 17.8 mmol/L (8-16); CALCIUM 8.4 mg/dL (8.5-10.1); CARBON DIOXIDE 22.8 mmol/L (21.0-32.0); CREATININE - SERUM 3.5 mg/dL (0.6-1.3); MAGNESIUM - SERUM 2.4 mg/dL (1.8-2.4)
[2017-09-27 05:11] LABS: POTASSIUM - SERUM 4.6 mmol/L (3.5-5.1)
[2017-09-27 05:22] LABS: BASOPHILS 0.1 % (0-2); EOSINOPHILS 0.6 % (0-7); HEMOGLOBIN 7.8 g/dL (13.5-17.5); IMMATURE GRANULOCYTES 0.1 % (0-5); LYMPHOCYTES 5.3 % (15-50); MCH 27.7 pg (26.0-34.0); MEAN PLATELET VOLUME 9.7 fL (7.4-10.4); MONOCYTES 2.9 % (2-11); PLATELET COUNT 72 10x3/uL (130-400); RBC 2.82 10x6/uL (4.20-6.10); RDW 23.5 % (11.5-14.5)
[2017-09-27 05:23] LABS: HEMATOCRIT 26.9 % (42.0-54.0); MCV 95.4 fL (80.0-100.0); WBC 7.2 10x3/uL (4.8-10.8)
[2017-09-28 00:38] VITALS: BP 129/75
[2017-09-28 04:00] VITALS: BP 168/80
[2017-09-28 06:45] LABS: ANION GAP 16.9 mmol/L (8-16); CALCIUM 8.4 mg/dL (8.5-10.1); CARBON DIOXIDE 21.4 mmol/L (21.0-32.0); CREATININE - SERUM 3.8 mg/dL (0.6-1.3); MAGNESIUM - SERUM 2.4 mg/dL (1.8-2.4); POTASSIUM - SERUM 4.3 mmol/L (3.5-5.1)
[2017-09-28 06:54] LABS: BASOPHILS 0.3 % (0-2); EOSINOPHILS 0.7 % (0-7); HEMATOCRIT 22.7 % (42.0-54.0); IMMATURE GRANULOCYTES 0.3 % (0-5); LYMPHOCYTES 4.8 % (15-50); MCH 27.5 pg (26.0-34.0); MONOCYTES 4.9 % (2-11); PLATELET COUNT 71 10x3/uL (130-400); RBC 2.47 10x6/uL (4.20-6.10); RDW 23.2 % (11.5-14.5); WBC 7.5 10x3/uL (4.8-10.8)
[2017-09-28 06:55] LABS: MCV 91.9 fL (80.0-100.0)
[2017-09-28 06:56] LABS: HEMOGLOBIN 6.8 g/dL (13.5-17.5)
[2017-09-28 08:04] VITALS: BP 74/52
[2017-09-28 11:22] VITALS: BP 133/55
[2017-09-28 15:55] VITALS: BP 100/55
[2017-09-28 19:31] LABS: APPEARANCE HAZY (CLEAR); BILIRUBIN NEGATIVE (NEGATIVE); COLOR YELLOW (YELLOW); GLUCOSE NEGATIVE (NEGATIVE); KETONE NEGATIVE (NEGATIVE); NITRITE NEGATIVE (NEGATIVE); PROTEIN 1+ mg/dL (NEGATIVE); SPECIFIC GRAVITY 1.015 (1.005-1.020); UROBILINOGEN NORMAL (NORMAL)
[2017-09-28 19:33] LABS: BACTERIA MODERATE /hpf (NONE SEEN); EPITHELIAL CELLS 0-5 /hpf (0-5); HYALINE CAST OCC /lpf (NONE SEEN)
[2017-09-28 20:53] VITALS: BP 120/57
[2017-09-29] VITALS (16 sets, daily range): BP systolic 45–150; BP diastolic 26–80
[2017-09-29 08:27] LABS: BASOPHILS 0.1 % (0-2); EOSINOPHILS 0.3 % (0-7); HEMATOCRIT 25.9 % (42.0-54.0); HEMOGLOBIN 7.6 g/dL (13.5-17.5); IMMATURE GRANULOCYTES 0.6 % (0-5); LYMPHOCYTES 8.1 % (15-50); MCH 27.9 pg (26.0-34.0); MCHC 29.3 g/dL (31.0-37.0); MONOCYTES 7.5 % (2-11); NEUTROPHILS 83.4 % (40-80); RBC 2.72 10x6/uL (4.20-6.10); RDW 22.9 % (11.5-14.5); WBC 9.3 10x3/uL (4.8-10.8)
[2017-09-29 08:28] LABS: MCV 95.2 fL (80.0-100.0); PLATELET COUNT 90 10x3/uL (130-400)
[2017-09-29 08:40] LABS: ANION GAP 16.1 mmol/L (8-16); CALCIUM 8.6 mg/dL (8.5-10.1); CARBON DIOXIDE 23.6 mmol/L (21.0-32.0); CREATININE - SERUM 3.9 mg/dL (0.6-1.3); MAGNESIUM - SERUM 2.4 mg/dL (1.8-2.4); POTASSIUM - SERUM 4.7 mmol/L (3.5-5.1)
[2017-09-29 23:51] LABS: BASOPHILS 0.1 % (0-2); EOSINOPHILS 0.1 % (0-7); HEMATOCRIT 22.4 % (42.0-54.0); IMMATURE GRANULOCYTES 0.3 % (0-5); LYMPHOCYTES 9.3 % (15-50); MCH 27.9 pg (26.0-34.0); MCHC 29.9 g/dL (31.0-37.0); MCV 93.3 fL (80.0-100.0); MEAN PLATELET VOLUME 10.8 fL (7.4-10.4); MONOCYTES 6.6 % (2-11); NEUTROPHILS 83.6 % (40-80); RDW 22.1 % (11.5-14.5)
[2017-09-29 23:56] LABS: WBC 6.7 10x3/uL (4.8-10.8)
[2017-09-29 23:57] LABS: HEMOGLOBIN 6.7 g/dL (13.5-17.5); PLATELET COUNT 68 10x3/uL (130-400)
[2017-09-30] VITALS (24 sets, daily range): BP systolic 89–141; BP diastolic 52–94
[2017-09-30 00:18] LABS: ALBUMIN 3.3 g/dL (3.4-5.0); ANION GAP 16.8 mmol/L (8-16); CALCIUM 8.3 mg/dL (8.5-10.1); CARBON DIOXIDE 22.9 mmol/L (21.0-32.0); CREATININE - SERUM 4.4 mg/dL (0.6-1.3); POTASSIUM - SERUM 4.7 mmol/L (3.5-5.1)
[2017-09-30 05:12] LABS: BASOPHILS 0 % (0-2); EOSINOPHILS 0.3 % (0-7); HEMATOCRIT 23.1 % (42.0-54.0); IMMATURE GRANULOCYTES 0.2 % (0-5); LYMPHOCYTES 9.6 % (15-50); MCH 28.1 pg (26.0-34.0); MCHC 30.3 g/dL (31.0-37.0); MCV 92.8 fL (80.0-100.0); MEAN PLATELET VOLUME 10.7 fL (7.4-10.4); MONOCYTES 7.6 % (2-11); NEUTROPHILS 82.3 % (40-80); PLATELET COUNT 68 10x3/uL (130-400); RBC 2.49 10x6/uL (4.20-6.10); RDW 22.1 % (11.5-14.5); WBC 5.9 10x3/uL (4.8-10.8)
[2017-09-30 05:34] LABS: ALBUMIN 3.5 g/dL (3.4-5.0); ANION GAP 20.4 mmol/L (8-16); BILIRUBIN - TOTAL 1.25 mg/dL (0.2-1.3); CALCIUM 8.6 mg/dL (8.5-10.1); CARBON DIOXIDE 21.2 mmol/L (21.0-32.0); CREATININE - SERUM 4.3 mg/dL (0.6-1.3); POTASSIUM - SERUM 4.6 mmol/L (3.5-5.1)
[2017-09-30 14:27] LABS: HEMATOCRIT 23.2 % (42.0-54.0)
[2017-10-01] VITALS (53 sets, daily range): BP systolic 53–136; BP diastolic 34–93
[2017-10-01 05:37] LABS: BASOPHILS 0.2 % (0-2); EOSINOPHILS 0.8 % (0-7); HEMATOCRIT 22.5 % (42.0-54.0); IMMATURE GRANULOCYTES 0.2 % (0-5); LYMPHOCYTES 13.1 % (15-50); MCH 27.8 pg (26.0-34.0); MCHC 30.7 g/dL (31.0-37.0); MEAN PLATELET VOLUME 11.5 fL (7.4-10.4); MONOCYTES 6.8 % (2-11); NEUTROPHILS 78.9 % (40-80); RBC 2.48 10x6/uL (4.20-6.10); RDW 22.3 % (11.5-14.5)
[2017-10-01 05:38] LABS: HEMOGLOBIN 6.9 g/dL (13.5-17.5); MCV 90.7 fL (80.0-100.0); PLATELET COUNT 82 10x3/uL (130-400)
[2017-10-01 05:42] LABS: ALBUMIN 3.6 g/dL (3.4-5.0); ANION GAP 21.5 mmol/L (8-16); BILIRUBIN - TOTAL 1.37 mg/dL (0.2-1.3); CALCIUM 8.7 mg/dL (8.5-10.1); CARBON DIOXIDE 20.8 mmol/L (21.0-32.0); CREATININE - SERUM 4.9 mg/dL (0.6-1.3); POTASSIUM - SERUM 4.3 mmol/L (3.5-5.1); PROTEIN - SERUM 8.1 g/dL (6.4-8.2)
[2017-10-01 09:56] LABS: INR 1.39 (0.85-1.17); PROTIME 16.6 SECONDS (11.6-15.0)
[2017-10-01 15:45] LABS: HEMOGLOBIN 9.4 g/dL (13.5-17.5)
[2017-10-02] VITALS (92 sets, daily range): BP systolic 80–112; BP diastolic 43–72
[2017-10-02 04:24] LABS: BASOPHILS 0.2 % (0-2); EOSINOPHILS 0.1 % (0-7); HEMATOCRIT 28.9 % (42.0-54.0); IMMATURE GRANULOCYTES 0.5 % (0-5); LYMPHOCYTES 8.4 % (15-50); MCHC 31.1 g/dL (31.0-37.0); MEAN PLATELET VOLUME 11.2 fL (7.4-10.4); MONOCYTES 7.8 % (2-11); RDW 21.3 % (11.5-14.5)
[2017-10-02 04:28] LABS: PLATELET COUNT 121 10x3/uL (130-400); RBC 3.21 10x6/uL (4.20-6.10)
[2017-10-02 04:42] LABS: ANION GAP 22.1 mmol/L (8-16); BILIRUBIN - TOTAL 1.36 mg/dL (0.2-1.3); CALCIUM 8.5 mg/dL (8.5-10.1); CARBON DIOXIDE 18.7 mmol/L (21.0-32.0); CREATININE - SERUM 5.4 mg/dL (0.6-1.3); POTASSIUM - SERUM 3.8 mmol/L (3.5-5.1); PROTEIN - SERUM 7.3 g/dL (6.4-8.2)
[2017-10-03] VITALS (90 sets, daily range): BP systolic 47–128; BP diastolic 27–64
[2017-10-03 04:26] LABS: BASOPHILS 0.2 % (0-2); EOSINOPHILS 0.6 % (0-7); HEMATOCRIT 29.5 % (42.0-54.0); HEMOGLOBIN 9.2 g/dL (13.5-17.5); IMMATURE GRANULOCYTES 0.4 % (0-5); LYMPHOCYTES 11.6 % (15-50); MCH 28.7 pg (26.0-34.0); MCHC 31.2 g/dL (31.0-37.0); MCV 91.9 fL (80.0-100.0); MEAN PLATELET VOLUME 10.8 fL (7.4-10.4); MONOCYTES 8.2 % (2-11); RBC 3.21 10x6/uL (4.20-6.10); RDW 21.6 % (11.5-14.5)
[2017-10-03 04:28] LABS: PLATELET COUNT 156 10x3/uL (130-400); WBC 14.1 10x3/uL (4.8-10.8)
[2017-10-03 04:46] LABS: ALBUMIN 3.4 g/dL (3.4-5.0); ANION GAP 20.9 mmol/L (8-16); BILIRUBIN - TOTAL 1.18 mg/dL (0.2-1.3); CALCIUM 8.3 mg/dL (8.5-10.1); CARBON DIOXIDE 21.3 mmol/L (21.0-32.0); POTASSIUM - SERUM 4.2 mmol/L (3.5-5.1); PROTEIN - SERUM 7.5 g/dL (6.4-8.2)
[2017-10-04] VITALS (94 sets, daily range): BP systolic 55–106; BP diastolic 36–78
[2017-10-04 03:55] LABS: INR 1.74 (0.85-1.17); PROTIME 19.8 SECONDS (11.6-15.0)
[2017-10-04 04:04] LABS: BASOPHILS 0.2 % (0-2); EOSINOPHILS 0.1 % (0-7); HEMATOCRIT 28.3 % (42.0-54.0); HEMOGLOBIN 8.6 g/dL (13.5-17.5); IMMATURE GRANULOCYTES 1.1 % (0-5); LYMPHOCYTES 10.1 % (15-50); MCHC 30.4 g/dL (31.0-37.0); MCV 92.2 fL (80.0-100.0); MONOCYTES 5.9 % (2-11); NEUTROPHILS 82.6 % (40-80); PLATELET COUNT 175 10x3/uL (130-400); RBC 3.07 10x6/uL (4.20-6.10); WBC 23.8 10x3/uL (4.8-10.8)
[2017-10-04 04:06] LABS: ALBUMIN 3.1 g/dL (3.4-5.0); ANION GAP 23.1 mmol/L (8-16); BILIRUBIN - TOTAL 1.8 mg/dL (0.2-1.3); CALCIUM 8.1 mg/dL (8.5-10.1); CARBON DIOXIDE 19.7 mmol/L (21.0-32.0); CREATININE - SERUM 6.6 mg/dL (0.6-1.3); POTASSIUM - SERUM 4.8 mmol/L (3.5-5.1); PROTEIN - SERUM 6.9 g/dL (6.4-8.2)
[2017-10-05] VITALS (86 sets, daily range): BP systolic 38–129; BP diastolic 10–111
[2017-10-05 05:47] LABS: INR 2.03 (0.85-1.17); PROTIME 22.4 SECONDS (11.6-15.0)
[2017-10-05 05:51] LABS: ALBUMIN 3.3 g/dL (3.4-5.0); BILIRUBIN - TOTAL 3.4 mg/dL (0.2-1.3); CALCIUM 7.9 mg/dL (8.5-10.1); CREATININE - SERUM 5.7 mg/dL (0.6-1.3); PROTEIN - SERUM 7.2 g/dL (6.4-8.2)
[2017-10-05 05:54] LABS: BASOPHILS 0.2 % (0-2); EOSINOPHILS 0.1 % (0-7); HEMATOCRIT 26.3 % (42.0-54.0); IMMATURE GRANULOCYTES 0.9 % (0-5); LYMPHOCYTES 11.5 % (15-50); MCH 28.2 pg (26.0-34.0); MCHC 30.4 g/dL (31.0-37.0); MCV 92.6 fL (80.0-100.0); MEAN PLATELET VOLUME 10.9 fL (7.4-10.4); MONOCYTES 6.9 % (2-11); NEUTROPHILS 80.4 % (40-80); PLATELET COUNT 132 10x3/uL (130-400); RBC 2.84 10x6/uL (4.20-6.10); RDW 22.2 % (11.5-14.5); WBC 20.5 10x3/uL (4.8-10.8)
[2017-10-06 05:06] LABS: BASOPHILS 0.4 % (0-2); EOSINOPHILS 0.1 % (0-7); HEMATOCRIT 25.2 % (42.0-54.0); IMMATURE GRANULOCYTES 3.9 % (0-5); LYMPHOCYTES 20.1 % (15-50); MCH 27.7 pg (26.0-34.0); MCHC 28.2 g/dL (31.0-37.0); NEUTROPHILS 74.5 % (40-80); RBC 2.56 10x6/uL (4.20-6.10); RDW 23.1 % (11.5-14.5); WBC 15.5 10x3/uL (4.8-10.8)
[2017-10-06 05:08] LABS: HEMOGLOBIN 7.1 g/dL (13.5-17.5); MCV 98.4 fL (80.0-100.0); PLATELET COUNT 101 10x3/uL (130-400)
[2017-10-06 05:09] LABS: INR 3.83 (0.85-1.17); PROTIME 36.9 SECONDS (11.6-15.0)
[2017-10-06 05:29] LABS: AMYLASE - SERUM 18 U/L (25-115); LIPASE 161 U/L (73-393)
[2017-10-06 05:34] LABS: ALBUMIN 2.8 g/dL (3.4-5.0); BILIRUBIN - TOTAL 4.8 mg/dL (0.2-1.3); CARBON DIOXIDE 20.6 mmol/L (21.0-32.0); CREATININE - SERUM 5.3 mg/dL (0.6-1.3); VANCOMYCIN - RANDOM 13.2 ug/mL (10.0-20.0)
[2017-10-06 05:35] LABS: ANION GAP 26.1 mmol/L (8-16); POTASSIUM - SERUM 6.7 mmol/L (3.5-5.1)
[2017-10-06 05:36] LABS: CALCIUM 6.8 mg/dL (8.5-10.1)
[2017-10-06 19:07] LABS: AEROBE ID Final report (()); RESULT 1 Enterococcus faecium (())
== END 2017-10-06 10:05 | DRG 207 ==
LOC: D.ER 09:49 → D.CVICU 12:00 → D.ICU 12:00 → D.M2 09-27 23:30 → D.CVICU 09-29 12:58 → D.ICU 09-29 19:09 → D.SDCHOLD 10-01 07:31 → D.ICU 10-01 07:31
PROVIDERS: Emergency Medicine; Internal Medicine; Internal Medicine Gastroenterology; Internal Medicine Nephrology; Internal Medicine Pulmonary Disease
PROC: 5A09357 Assistance with Respiratory Ventilation, Less than 24 Consecutive Hours, Continuous Positive Airway Pressure (ICD-10-PCS; principal; 2017-09-24)
PROC: 5A1955Z Respiratory Ventilation, Greater than 96 Consecutive Hours (ICD-10-PCS; 2017-10-01)
PROC: 0BH17EZ Insertion of Endotracheal Airway into Trachea, Via Natural or Artificial Opening (ICD-10-PCS; 2017-10-01)
DX: J96.01 Acute respiratory failure with hypoxia (principal); I50.23 Acute on chronic systolic (congestive) heart failure; A41.9 Sepsis, unspecified organism; R65.21 Severe sepsis with septic shock; I13.0 Hypertensive heart and chronic kidney disease with heart failure and stage 1 through stage 4 chronic kidney disease, or unspecified chronic kidney disease; N17.9 Acute kidney failure, unspecified; E87.2 Acidosis; J81.1 Chronic pulmonary edema; J44.1 Chronic obstructive pulmonary disease with (acute) exacerbation; E66.2 Morbid (severe) obesity with alveolar hypoventilation; J90 Pleural effusion, not elsewhere classified; F17.203 Nicotine dependence unspecified, with withdrawal; E72.20 Disorder of urea cycle metabolism, unspecified; N39.0 Urinary tract infection, site not specified; D68.9 Coagulation defect, unspecified; J96.02 Acute respiratory failure with hypercapnia; E11.22 Type 2 diabetes mellitus with diabetic chronic kidney disease; N18.3 Chronic kidney disease, stage 3 (moderate); I27.20 Pulmonary hypertension, unspecified; D64.9 Anemia, unspecified; D69.6 Thrombocytopenia, unspecified; K72.90 Hepatic failure, unspecified without coma; K74.60 Unspecified cirrhosis of liver; Z95.1 Presence of aortocoronary bypass graft; I25.10 Atherosclerotic heart disease of native coronary artery without angina pectoris; R40.2353 Coma scale, best motor response, localizes pain, at hospital admission; R40.2133 Coma scale, eyes open, to sound, at hospital admission; R40.2243 Coma scale, best verbal response, confused conversation, at hospital admission; D69.59 Other secondary thrombocytopenia